=== PATIENT | female | born 1950 ===

== ENCOUNTER 2023-09-25 16:30 | Emergency (ER) | payer MEDICARE ==
[~2023-09-25] VITALS: Ht 162.6 cm; Wt 53.6 kg
[2023-09-25 16:39] VITALS: BP 140/84; PULSE 77; RESP 16; TEMP 99.3; O2SAT 95
== END 2023-09-26 00:17 | disposition left against medical advice (07) ==
LOC: ER 16:32
DX: R51.9 Headache, unspecified (principal); Z53.21 Procedure and treatment not carried out due to patient leaving prior to being seen by health care provider